=== PATIENT | female | born 1985 | race Caucasian/White ===

== ENCOUNTER → 2017-05-10 | Outpatient (CLI) | payer BC ==
--- NOTE | 2017-05-10 15:11 | Diagnostic Imaging Report ---
INDICATION: survey. TECHNIQUE: Multiple real-time grayscale images were obtained over the gravid uterus. COMPARISON: None. FINDINGS: heart rate is 130 beats per minute. The placenta is to the right with no placenta previa. The cervix appears to be closed and is 4.6 cm in length. The amniotic fluid appears to be normal. anatomy demonstrates normal appearance of the four-chamber view, stomach, kidneys, posterior fossa and no ventriculomegaly. The bladder is seen with two umbilical arteries. The cord insertion and spine are not well seen. The maternal adnexa are obscured by bowel gas. Biometrical measurements are as follows: Biparietal 4.41 cm, age 19 weeks 3 days. Head circumference 16.86 cm, age 19 weeks 4 days. Abdominal circumference 14.20 cm, age 19 weeks 4 days. Femur length 3.35 cm, age 20 weeks 4 days. Sonographic estimate age: 19 weeks 6 days. Sonographic estimated date of delivery: 09-28-17. Estimated Weight: 321 gm (+/- 47 gm). LMP percentile: 58%. heart rate: 130 beats per minute. number: 1 of 1. IMPRESSION: Followup study within 2 weeks is suggested to reevaluate the cord insertion and spine. Dictated by: Dictated on workstation # [id number]
== END ==
LOC: RAD 10:15
PROVIDERS: ATTEND Obstetrics & Gynecology
DX: Z34.82 Encounter for supervision of other normal pregnancy, second trimester (principal); Z3A.19 19 weeks gestation of pregnancy
CPT/HCPCS: 76805

== ENCOUNTER → 2017-09-14 | Outpatient (CLI) | payer BC ==
--- NOTE | 2017-09-14 16:23 | Diagnostic Imaging Report ---
INDICATION: Z33.1. FINDINGS: A biophysical profile was performed. The fetus is cephalic. The heart rate was recorded at 156 BPM. The amniotic fluid index is 8.7 cm. The placenta is to the right. The overall biophysical profile score is normal at 8 out of 8 points. IMPRESSION: The biophysical profile score is 8 out of 8 points. Dictated by: Dictated on workstation # [id number]
== END ==
LOC: RAD 12:13
PROVIDERS: ATTEND Obstetrics & Gynecology
DX: O24.419 Gestational diabetes mellitus in pregnancy, unspecified control (principal); Z3A.00 Weeks of gestation of pregnancy not specified
CPT/HCPCS: 76819

== ENCOUNTER 2017-09-23 06:00 | Inpatient (IN) | payer BC ==
[~2017-09-23] VITALS: Ht 167.6 cm; Wt 97.5 kg
[2017-09-23] VITALS (46 sets, daily range): BP systolic 112–166; BP diastolic 65–105
[2017-09-23] MEDS ORDERED: D5 LR IV SOLUTION 1,000 ML IV ONE (06:16)
[2017-09-23] MEDS ORDERED: D5 LR IV SOLUTION 1,000 ML IV SCH (06:22)
[2017-09-23] MEDS ORDERED: MINERAL OIL CONCENTRATE 99.9% 15 ML UDC TOP PRN (06:30)
[2017-09-23 06:31] LABS: BASOPHILS % (AUTO) 0 % (0-10); EOSINOPHILS # (AUTO) 0.2 10^3/uL (0.0-0.3); EOSINOPHILS % (AUTO) 2 % (0-10); HEMATOCRIT 34 % (35-52); HEMOGLOBIN 11.5 G/DL (11.5-16.0); LYMPHOCYTES # (AUTO) 1.4 X 10^3 (1.0-4.0); LYMPHOCYTES % (AUTO) 14 % (12-44); MEAN CORPUSCULAR HEMOGLOBIN 28 PG (25-34); MEAN CORPUSCULAR HGB CONC 34 G/DL (32-36); MEAN CORPUSCULAR VOLUME 83 FL (80-99); MEAN PLATELET VOLUME 10.8 FL (7.4-10.4); MONOCYTES # (AUTO) 0.6 X 10^3 (0.0-1.0); MONOCYTES % (AUTO) 5 % (0-12); NEUTROPHILS # (AUTO) 8.3 X 10^3 (1.8-7.8); NEUTROPHILS % (AUTO) 79 % (42-75); PLATELET COUNT 184 10^3/uL (130-400); RED BLOOD COUNT 4.11 10^6/uL (4.35-5.85); RED CELL DISTRIBUTION WIDTH 13.9 % (10.0-14.5); WHITE BLOOD COUNT 10.6 10^3/uL (4.3-11.0)
[2017-09-23 06:38] LABS: BILIRUBIN,URINE NEGATIVE (NEGATIVE); CLARITY,URINE CLEAR; COLOR,URINE YELLOW; GLUCOSE, URINE (UA) 3+ (NEGATIVE); KETONES,URINE NEGATIVE (NEGATIVE); LEUKOCYTE ESTERASE ,URINE NEGATIVE (NEGATIVE); NITRITE,URINE NEGATIVE (NEGATIVE); PH,URINE 7 (5-9); PROTEIN,URINE NEGATIVE (NEGATIVE); UROBILINOGEN,URINE NORMAL (NORMAL)
[2017-09-23 06:43] LABS: BACTERIA,URINE TRACE /HPF; SQUAMOUS EPITHELIAL CELL,UR 0-2 /HPF; WBC,URINE RARE /HPF
[2017-09-23] MEDS ORDERED: LACTATED RINGERS 1,000 ML IV ONE ×2 (07:21→18:51)
[2017-09-23] MEDS ORDERED: NS IV 1000 ML 1,000 ML IV SCH (07:24)
[2017-09-23] MEDS ORDERED: OXYTOCIN/NORMAL SALINE 500 ML IV SCH ×2 (07:27→19:00)
[2017-09-23] MEDS ORDERED: fentaNYL INJECTION 100 MCG/2 ML AMP ONE ×2 (07:59→18:48)
[2017-09-23] MEDS ORDERED: SUFENTA 0.6MCG/ML BUPIVA 0.125 100 ML ONE ×2 (08:00→14:41)
[2017-09-23] MEDS: CHLORASEPTIC LOZENGE MM PRN ×2 (08:05→17:35)
[2017-09-23] MEDS ORDERED: ONDANSETRON 4 MG/2 ML (SDV) Z0FRAN IVP PRN ×2 (10:15→19:00)
[2017-09-23] MEDS ORDERED: FAMOTIDINE 20MG/2ML IV (PEPCID) IVP ONE (10:15)
[2017-09-23] MEDS ORDERED: raNItidine 50 MG/NS 100 ML IVPB IV ONE ×2 (10:30)
[2017-09-23] MEDS ORDERED: CATHETER FLUSH 10 ML SYR IV SCH ×3 (14:00→22:00)
--- NOTE | 2017-09-23 18:03 | History & Physical-OB ---
OB - Chief Complaint & HPI Date/Time Date of Admission: Date of Admission: Sep 23, 2017 at 6:05 am Time Seen by Provider: 07:30 Chief Complaint/History OB-Reason for Admission/Chief: Induction of Labor Hx : 2 Hx Para: 2 Expected Date of Delivery: Sep 29, 2017 Gestational Age in Weeks: 39 Indication for induction: other Admission Nurse Assessment Rev: Yes History of Labs B pos Antibody neg RI RPR NR HBsAg NR HIV NR GC neg GBS neg Allergies and Home Medications Allergies Coded Allergies: No Known Drug Allergies (Unverified , 09/23/17) Patient Home Medication List Home Medication List Reviewed: Yes OB - History Hx of Present Care: Yes Ultrasounds: Normal mid trimester US Obstetrical Complications: Gestational Diabetes (GDMA2) Medical Complications: None Patient Past Medical History n/a Social History/Family History HIV/AIDS: No Recent Infectious Disease Expo: No Sexually Transmitted Disease: No Alcohol Use: Denies Use Recreational Drug Use: No OB - Admission Exam Physical Exam Vitals: Vital Signs 09/23/17 09/23/17 13:14 16:30 Temp 96.9 Pulse 78 Resp 18 B/P (MAP) 138/67 (90) Pulse Ox 100 O2 Delivery Room Air HEENT: NCAT Heart: Rhythm Normal Lungs: Clear Abdomen: Gravid Extremities: Normal Reflexes: Normal Cervical Dilatation: 1cm Effacement: 75% Station: -1 Membranes: Intact Heart Rate: 130's Accelerations: Accelerations Present Decelerations: No Decelerations Short Term Variability: Present Cardio Tech Variability: Average (6-25) Contractions on Admission: >10 Minutes Apart Intensity: Mild Osorio Scoring Tool (Modified) Dilation (cm): 1-2cm (1) Effacement (%): 51-79% (2) Descent/Station: -1,0 (2) Cervix Consistency: Soft (2) Cervix Position: Anterior (2) Osorio Score: 9 Labs Laboratory Tests Test 09/23/17 06:15 09/23/17 09:18 Range/Units White Blood Count 10.6 4.3-11.0 10^3/uL Red Blood Count 4.11 L 4.35-5.85 10^6/uL Hemoglobin 11.5 11.5-16.0 G/DL Hematocrit 34 L 35-52 % Mean Corpuscular Volume 83 80-99 FL Mean Corpuscular Hemoglobin 28 25-34 PG Mean Corpuscular Hemoglobin Concent 34 32-36 G/DL Red Cell Distribution Width 13.9 10.0-14.5 % Platelet Count 184 130-400 10^3/uL Mean Platelet Volume 10.8 H 7.4-10.4 FL Neutrophils (%) (Auto) 79 H 42-75 % Lymphocytes (%) (Auto) 14 12-44 % Monocytes (%) (Auto) 5 0-12 % Eosinophils (%) (Auto) 2 0-10 % Basophils (%) (Auto) 0 0-10 % Neutrophils # (Auto) 8.3 H 1.8-7.8 X 10^3 Lymphocytes # (Auto) 1.4 1.0-4.0 X 10^3 Monocytes # (Auto) 0.6 0.0-1.0 X 10^3 Eosinophils # (Auto) 0.2 0.0-0.3 10^3/uL Basophils # (Auto) 0.0 0.0-0.1 10^3/uL Urine Color YELLOW Urine Clarity CLEAR Urine pH 7 5-9 Urine Specific [place] 1.010 L 1.016-1.022 Urine Protein NEGATIVE NEGATIVE Urine Glucose (UA) 3+ H NEGATIVE Urine Ketones NEGATIVE NEGATIVE Urine Nitrite NEGATIVE NEGATIVE Urine Bilirubin NEGATIVE NEGATIVE Urine Urobilinogen NORMAL NORMAL MG/DL Urine Leukocyte Esterase NEGATIVE NEGATIVE Urine RBC (Auto) NEGATIVE NEGATIVE Urine RBC NONE /HPF Urine WBC RARE /HPF Urine Squamous Epithelial Cells 0-2 /HPF Urine Crystals NONE /LPF Urine Bacteria TRACE /HPF Urine Casts NONE /LPF Urine Mucus NEGATIVE /LPF Urine Culture Indicated NO Glucometer 123 H 70-110 MG/DL OB - Assessment/Plan/Diagnosis Assessment Assessment: induction of labor Admission Dx 31-year-old at 39 weeks and 1 day gestation Trial of labor after GDM A 2 on glyburide GBS negative Admission Status: Inpatient Order (span 2 midnights) Reason for Inpatient Admission: Labor and Delivery of -term Plan Plan: Induction Induction Method: IGOR HARRIS DO Sep 23, 2017 6:02 pm
[2017-09-23] MEDS ORDERED: LIDOCAINE PF 2% 5 ML (XYLOCAINE) VIAL ONE ×3 (18:47→20:10)
[2017-09-23] MEDS ORDERED: ceFAZolin 2 GM IV Premixed 50 ML ONE (18:51)
[2017-09-23] MEDS ORDERED: METOCLOPRAMIDE INJ 10 MG/2 ML (REGLAN) ONE (18:51)
[2017-09-23] MEDS ORDERED: BUPIVACAINE 0.25% 30 ML (SENSORCAINE) VIAL ONE (18:51)
[2017-09-23] MEDS ORDERED: CITRIC ACID/SOB CIT (BICITRA) 30 ML UDC ONE (18:51)
[2017-09-23] MEDS ORDERED: NS (IVPB) 100 ML ONE (18:51)
[2017-09-23] MEDS ORDERED: raNItidine 50 MG/2 ML INJ (ZANTAC) ONE (18:51)
[2017-09-23] MEDS ORDERED: OXYTOCIN/NORMAL SALINE 1,000 ML IV ONE (18:52)
[2017-09-23] MEDS ORDERED: HYDROmorphone (DILAUDID) 2 MG/ML VIAL IVP PRN (19:00)
[2017-09-23] MEDS ORDERED: ceFAZolin 2 GM IV Premixed 50 ML IV ONE (19:00)
[2017-09-23] MEDS ORDERED: TETANUS,DIPTH,PERTUSS P/F (BOOSTRIX) 0.5 ML VIAL IM SCH (19:00)
[2017-09-23] MEDS ORDERED: MEASLES,MUMPS,RUBELLA 1 EA INJ SC SCH (19:00)
[2017-09-23] MEDS ORDERED: KETOROLAC 30 MG/ML VIAL IVP SCH (19:00)
[2017-09-23] MEDS: LACTATED RINGERS 1,000 ML IV SCH ×2 (19:02→19:57)
[2017-09-23] MEDS ORDERED: DEXAMETHASONE 10 MG/ML (DECADRON) 1 ML VIAL ONE (19:02)
[2017-09-23] MEDS ORDERED: ONDANSETRON 4 MG/2 ML (SDV) Z0FRAN ONE (19:02)
[2017-09-23] MEDS ORDERED: LACTATED RINGERS 1,000 ML IV SCH (19:05)
--- NOTE | 2017-09-23 19:08 | Progress Note-Standard ---
Standard Progress Note Progress Notes/Assess & Plan Date Seen by Provider: Sep 23, 2017 Time Seen by Provider: 19:03 Progress/Assessment & Plan This 31-year-old with history of previous section for twin delivery with her first was brought in this morning for elective induction of labor, and trial of labor after . The patient had been extensively counseled in the office about the risk involved TOLAC. Upon admission IV was placed and epidural was placed according to protocol established. Artificial rupture membranes was performed at approximately 730 this morning with clear fluid noted and Pitocin augmentation was initiated throughout the day to maximum dose of 16 mU/m. She progressed to 3 cm dilatation however at approximately 1 o'clock this afternoon we recognized that there was a hand presentation several different maneuvers were performed to try to reduce the hand including manual reduction, and repositioning the patient in hands and knees left side and right side all without any reduction or movement of the hand and its position. Due to malpresentation and no progression in cervical dilatation in greater than 4 hours despite adequate augmentation discussion was made with the patient to proceed with . Risk of the procedure is briefly reviewed with the patient, the patient is familiar with the risk from previous . Consent was obtained and we will proceed once our staff is available. IGOR DEAN DO Sep 23, 2017 19:08
[2017-09-23] MEDS ORDERED: FAMOTIDINE 20MG/2ML IV (PEPCID) IV ONE (19:15)
[2017-09-23] MEDS ORDERED: CITRIC ACID/SOB CIT (BICITRA) 30 ML UDC PO ONE (19:15)
[2017-09-23] MEDS ORDERED: raNItidine 50 MG/2 ML INJ (ZANTAC) IV ONE (19:15)
[2017-09-23] MEDS ORDERED: METOCLOPRAMIDE INJ 10 MG/2 ML (REGLAN) IV ONE (19:15)
--- NOTE | 2017-09-23 19:36 | Discharge Inst-Women's Service ---
Discharge Inst-Women's Serv Depart Medication/Instructions New, Converted or Re-Newed RX: RX on Chart Consults/Follow Up Additional Follow Up: Yes Orders/Referrals Dr. Rico in 7-10 days and in 6 weeks Activity Activity: Activity as Tolerated Driving Instructions: No Driving for 1 Week NO SMOKING: NO SMOKING Nothing Inside Vagina: No Douching, No Terramuggus, No Tampons Diet Discharge Diet: No Restrictions Symptoms to Report to : Bleeding Excessive, Pain Increased, Fever Over 101 Degrees F, Vaginal Bleeding Increase, Questions/Concerns For Any Problems or Questions: Contact Your Physician Skin/Wound Care Infection Signs and Symptoms: Increased Redness, Foul Odor of Wound, Increased Drainage, Skin Itchy or Has a Rash, Increased Swelling, Temperature Above 101 F Operative Area Clean and Dry: Keep Incision Clean/Dry Stitches/Juan Manuel/Dermabond: Dermabond, Care of Stitches Bathing Instructions: IGOR Mccain DO Sep 23, 2017 19:36
[2017-09-23] MEDS ORDERED: ACHD5005 PO (19:38)
[2017-09-23] MEDS ORDERED: IBUP-1773 PO (19:38)
[2017-09-23] MEDS ORDERED: DOCU100C37 PO (19:38)
[2017-09-23] MEDS: DOCUSATE SODIUM 100 MG (COLACE) CAP PO SCH (21:00)
[2017-09-24 01:00] VITALS: BP 114/78
--- NOTE | 2017-09-24 02:40 | OPERATIVE REPORT ---
DATE OF SERVICE: PREOPERATIVE DIAGNOSES: 1. A 31-year-old G2, P2 at 39 weeks and 1 day gestation. 2. Hand/ malpresentation. 3. Failure to progress. POSTOPERATIVE DIAGNOSES: 1. A 31-year-old G2, P2 at 39 weeks and 1 day gestation. 2. Hand/ malpresentation. 3. Failure to progress. PROCEDURE: Repeat low transverse section. SURGEON: Dr. Handy Rico. ANESTHESIA: Epidural, which was bolused. ESTIMATED BLOOD LOSS: 300 mL. URINE OUTPUT: 1200 mL clear at the end of procedure. FLUIDS: 1300 mL lactated Ringer solution. FINDINGS: A live male infant weighing 7 pounds 8 ounces, Apgars 9 and 9. Grossly normal appearing uterus, bilateral fallopian tubes and ovaries. INDICATIONS FOR PROCEDURE: This patient was admitted as an elective induction for trial of labor after . Please see my preoperative note for complete details pertaining to the patient's preoperative course and indication. DESCRIPTION OF PROCEDURE IN DETAIL: Once in the operating room, spinal epidural analgesia was found to be adequate. She was placed in the supine position with a leftward tilt, prepped and draped in normal sterile fashion where time out was performed. Anesthesia was tested. Once anesthesia was found to be adequate, a Pfannenstiel skin incision was made through the previous existing scar using knife and carried down to underlying fascia using Bovie cautery. Fascial incision was extended laterally using Bovie cautery. Superior aspect of fascial incision was then grasped with Clifton clamps, tented up and dissected off the underlying rectus muscles. The inferior aspect of the fascial incision was then grasped with Clifton clamps, tented up and dissected off the underlying rectus muscles. The rectus muscles were then dissected down the midline using blunt traction and Dover scissors, which exposed the peritoneum which entered bluntly and extended with blunt traction. Lavell ring retractor was placed within the peritoneal incision, which offers excellent lateral sidewall retraction. I then identified the lower uterine segment, which was found to be thinned out. I make a low transverse incision through the vesicouterine peritoneum and bluntly dissect the bladder off of the lower uterine segment. I proceeded with my myotomy until membranes were visualized, at which point I extended the uterine incision laterally and superiorly using bandage scissors. Amniotomy was performed with blunt dissection. The was found in vertex presentation with the hand presentation, persistent. I am able to elevate the 's head up to the incision without bringing the hand with it after which with the gentle fundal pressure, the 's head was delivered through the incision. The nares and oropharynx were bulb suctioned. Anterior and posterior shoulders delivered. Infant was then brought to the operative field where the cord was doubly clamped and cut. was handed off to the waiting nurses in attendance. Cord blood was collected. Three-vessel cord was intact. Placenta delivered spontaneously thereafter. IV Pitocin was initiated to facilitate uterine contraction. Uterine fundus became firmer with bimanual massage. Uterus was then exteriorized and cleared off all endometrial clots and debris. I then proceeded with closing the uterine incision using 0 Vicryl suture in running locked fashion. Second layer of imbricating 0 Monocryl was placed. Excellent hemostasis was noted after doing this. I then placed the uterus back within the pelvis, copiously irrigated the pelvis using normal saline. There was no active bleeding noted once again from any of my dissection planes. I then placed Interceed antiadhesive over my low transverse incision and proceeded with closing the peritoneum using 3-0 Vicryl suture in running fashion. The rectus muscle was reapproximated using 3-0 Vicryl suture in an interrupted fashion. The fascia was reapproximated using 0 Vicryl suture in running fashion. Subcutaneous tissue was reapproximated using 3-0 plain in interrupted subcutaneous stitch and skin reapproximated using 4-0 Monocryl running subcuticular. Dermabond was applied to the incision and sterile dressing with adhesive white tape. The patient tolerated the procedure well and sent to recovery area in stable condition. Lap and sponge counts were correct at the end of the procedure. Instrument counts correct as well. Two grams of Ancef were given preoperatively for infection prophylaxis. Job ID: [id number] DocumentID: [id number] Dictated Date: 09/23/2017 20:15:31 Packing House Supervisor Date: 09/24/2017 02:39:56 Dictated By: DO JUAN LUIS ROLLINS
[2017-09-24 04:30] VITALS: BP 110/71
[2017-09-24] MEDS: HYDROcodone/APAP 5 MG/325 MG (LORTAB) TAB PO PRN ×2 (05:16→14:16)
[2017-09-24 06:32] LABS: BASOPHILS % (AUTO) 0 % (0-10); EOSINOPHILS % (AUTO) 0 % (0-10); HEMATOCRIT 30 % (35-52); LYMPHOCYTES % (AUTO) 6 % (12-44); MEAN CORPUSCULAR HEMOGLOBIN 28 PG (25-34); MEAN CORPUSCULAR HGB CONC 33 G/DL (32-36); MEAN CORPUSCULAR VOLUME 84 FL (80-99); MEAN PLATELET VOLUME 10.8 FL (7.4-10.4); MONOCYTES # (AUTO) 0.6 X 10^3 (0.0-1.0); MONOCYTES % (AUTO) 4 % (0-12); NEUTROPHILS # (AUTO) 14.5 X 10^3 (1.8-7.8); NEUTROPHILS % (AUTO) 90 % (42-75); PLATELET COUNT 187 10^3/uL (130-400); RED BLOOD COUNT 3.59 10^6/uL (4.35-5.85); RED CELL DISTRIBUTION WIDTH 14.1 % (10.0-14.5); WHITE BLOOD COUNT 16.1 10^3/uL (4.3-11.0)
[2017-09-24 07:36] VITALS: BP 113/70
--- NOTE | 2017-09-24 08:28 | Postpartum Progress Note ---
Note Note Day # 1 Subjective: Patient is without complaints. Ambulating, voiding. Tolerating a regular diet without nausea or vomiting. Normal lochia. Pain is well controlled with oral pain medications. Attempting to breastfeed, but meeting with LC later today. Objective: Vital Sign - Last 24 Hours 09/23/17 09/23/17 09/23/17 09/23/17 08:35 08:40 08:45 09:00 Pulse 100 96 100 98 Resp 18 18 18 18 B/P (MAP) 135/91 (106) 139/94 (109) 138/76 (96) 141/89 (106) Pulse Ox 100 100 100 100 O2 Delivery Room Air Room Air Room Air Room Air 09/23/17 09/23/17 09/23/17 09/23/17 09:15 09:30 09:45 10:00 Temp 97.0 Pulse 102 89 89 83 Resp 18 18 18 18 B/P (MAP) 130/91 (104) 132/75 (94) 132/75 (94) 126/79 (95) Pulse Ox 100 100 100 100 O2 Delivery Room Air Room Air Room Air Room Air 09/23/17 09/23/17 09/23/17 09/23/17 10:15 10:30 10:45 11:00 Pulse 72 72 77 89 Resp 18 18 18 18 B/P (MAP) 130/81 (97) 130/81 (97) 128/79 (95) 138/86 (103) Pulse Ox 100 100 99 100 O2 Delivery Room Air Room Air Room Air Room Air 09/23/17 09/23/17 09/23/17 09/23/17 11:15 11:30 11:45 12:00 Pulse 82 77 86 71 Resp 18 18 18 18 B/P (MAP) 140/82 (101) 131/75 (93) 122/68 (86) Pulse Ox 99 100 99 99 O2 Delivery Room Air Room Air Room Air Room Air 09/23/17 09/23/17 09/23/17 09/23/17 12:15 12:30 12:45 13:00 Pulse 81 77 77 93 Resp 18 18 18 18 B/P (MAP) 113/65 (81) 119/67 (84) 153/93 (113) 135/99 (111) Pulse Ox 99 99 100 100 O2 Delivery Room Air Room Air Room Air Room Air 09/23/17 09/23/17 09/23/17 09/23/17 13:14 13:15 13:30 13:45 Temp 96.9 Pulse 86 72 68 Resp 18 18 18 B/P (MAP) 129/84 (99) 122/72 (89) 117/71 (86) Pulse Ox 93 98 99 O2 Delivery Room Air Room Air Room Air 09/23/17 09/23/17 09/23/17 09/23/17 14:00 14:15 14:30 14:45 Pulse 68 65 72 90 Resp 18 18 18 18 B/P (MAP) 117/71 (86) 117/73 (88) 116/74 (88) 134/98 (110) Pulse Ox 99 100 100 100 O2 Delivery Room Air Room Air Room Air Room Air 09/23/17 09/23/17 09/23/17 09/23/17 15:00 15:15 15:30 15:45 Pulse 95 95 89 92 Resp 18 18 18 18 B/P (MAP) 135/79 (97) 135/79 (97) 140/72 (94) 144/92 (109) Pulse Ox 100 100 100 97 O2 Delivery Room Air Room Air Room Air Room Air 09/23/17 09/23/17 09/23/17 09/23/17 16:00 16:15 16:30 16:45 Pulse 81 78 78 97 Resp 18 18 18 18 B/P (MAP) 144/92 (109) 141/81 (101) 138/67 (90) 146/91 (109) Pulse Ox 99 99 100 100 O2 Delivery Room Air Room Air Room Air Room Air 09/23/17 09/23/17 09/23/17 09/23/17 17:00 17:06 17:15 17:30 Temp 99.1 98.4 Pulse 88 85 107 Resp 18 18 18 B/P (MAP) 146/91 (109) 148/78 (101) Pulse Ox 98 100 97 O2 Delivery Room Air Room Air Room Air 09/23/17 09/23/17 09/23/17 09/23/17 17:45 18:00 18:15 18:30 Pulse 85 85 Resp 18 18 18 18 B/P (MAP) 148/78 (101) 148/78 (101) Pulse Ox 100 100 O2 Delivery Room Air Room Air Room Air Room Air 409/23/17 09/23/17 09/24/17 18:45 19:00 21:45 00:22 Temp 99.2 Pulse 101 Resp 18 B/P (MAP) 112/72 (85) Pulse Ox 98 O2 Delivery Room Air Room Air Room Air Room Air 09/24/17 09/24/17 09/24/17 01:00 04:30 07:36 Temp 97.4 97.6 97.5 Pulse 87 91 78 Resp 18 18 18 B/P (MAP) 114/78 (90) 110/71 (84) 113/70 (84) Pulse Ox 97 98 97 O2 Delivery Room Air Room Air Room Air Intake and Output 09/23/17 09/23/17 09/24/17 15:00 23:00 07:00 Intake Total 1980 ml 1090 ml 4300 ml Output Total 1200 ml 2750 ml Balance 1980 ml -110 ml 1550 ml Physical Exam: General - Alert and oriented, no apparent distress Abdomen - Soft, appropriately tender to palpation, non-distended, fundus firm at umbilicus Extremities - no edema, negative Landon's bilaterally Incision: c/d/i Assessment: POD 1 RLTCS Malpresentation Plan: Routine care. Encourage breast feeding. Encourage ambulation. Ferrous sulfate supplementation. Plan for discharge tomorrow Vitals - Labs Vital Signs - I&O Vital Signs Date Time Temp Pulse Resp B/P (MAP) Pulse Ox O2 Delivery O2 Flow Rate FiO2 09/24/17 07:36 97.5 78 18 113/70 (84) 97 Room Air 09/24/17 04:30 97.6 91 18 110/71 (84) 98 Room Air 09/24/17 01:00 97.4 87 18 114/78 (90) 97 Room Air 09/24/17 00:22 Room Air 09/23/17 21:45 99.2 101 18 112/72 (85) 98 Room Air 09/23/17 19:00 Room Air 09/23/17 18:45 Room Air 09/23/17 18:30 18 Room Air 09/23/17 18:15 18 Room Air 09/23/17 18:00 85 18 148/78 (101) 100 Room Air 09/23/17 17:45 85 18 148/78 (101) 100 Room Air 09/23/17 17:30 98.4 107 18 97 Room Air 09/23/17 17:15 85 18 148/78 (101) 100 Room Air 09/23/17 17:06 99.1 09/23/17 17:00 88 18 146/91 (109) 98 Room Air 09/23/17 16:45 97 18 146/91 (109) 100 Room Air 09/23/17 16:30 78 18 138/67 (90) 100 Room Air 09/23/17 16:15 78 18 141/81 (101) 99 Room Air 09/23/17 16:00 81 18 144/92 (109) 99 Room Air 09/23/17 15:45 92 18 144/92 (109) 97 Room Air 09/23/17 15:30 89 18 140/72 (94) 100 Room Air 09/23/17 15:15 95 18 135/79 (97) 100 Room Air 09/23/17 15:00 95 18 135/79 (97) 100 Room Air 09/23/17 14:45 90 18 134/98 (110) 100 Room Air 09/23/17 14:30 72 18 116/74 (88) 100 Room Air 09/23/17 14:15 65 18 117/73 (88) 100 Room Air 09/23/17 14:00 68 18 117/71 (86) 99 Room Air 09/23/17 13:45 68 18 117/71 (86) 99 Room Air 09/23/17 13:30 72 18 122/72 (89) 98 Room Air 09/23/17 13:15 86 18 129/84 (99) 93 Room Air 09/23/17 13:14 96.9 09/23/17 13:00 93 18 135/99 (111) 100 Room Air 09/23/17 12:45 77 18 153/93 (113) 100 Room Air 09/23/17 12:30 77 18 119/67 (84) 99 Room Air 09/23/17 12:15 81 18 113/65 (81) 99 Room Air 09/23/17 12:00 71 18 122/68 (86) 99 Room Air 09/23/17 11:45 86 18 99 Room Air 09/23/17 11:30 77 18 131/75 (93) 100 Room Air 09/23/17 11:15 82 18 140/82 (101) 99 Room Air 09/23/17 11:00 89 18 138/86 (103) 100 Room Air 09/23/17 10:45 77 18 128/79 (95) 99 Room Air 09/23/17 10:30 72 18 130/81 (97) 100 Room Air 09/23/17 10:15 72 18 130/81 (97) 100 Room Air 09/23/17 10:00 83 18 126/79 (95) 100 Room Air 09/23/17 09:45 89 18 132/75 (94) 100 Room Air 09/23/17 09:30 89 18 132/75 (94) 100 Room Air 09/23/17 09:15 97.0 102 18 130/91 (104) 100 Room Air 09/23/17 09:00 98 18 141/89 (106) 100 Room Air 09/23/17 08:45 100 18 138/76 (96) 100 Room Air 09/23/17 08:40 96 18 139/94 (109) 100 Room Air 09/23/17 08:35 100 18 135/91 (106) 100 Room Air 09/23/17 08:28 104 18 145/83 (103) 100 Room Air I & O 09/24/17 07:00 Intake Total 7370 ml Output Total 3950 ml Balance 3420 ml Labs Laboratory Tests 09/23/17 09:18: Glucometer 123H 09/24/17 06:01: White Blood Count 16.1H, Red Blood Count 3.59L, Hemoglobin 10.0L, Hematocrit 30L , Mean Corpuscular Volume 84, Mean Corpuscular Hemoglobin 28, Mean Corpuscular Hemoglobin Concent 33, Red Cell Distribution Width 14.1, Platelet Count 187, Mean Platelet Volume 10.8H, Neutrophils (%) (Auto) 90H, Lymphocytes (%) (Auto) 6L, Monocytes (%) (Auto) 4, Eosinophils (%) (Auto) 0, Basophils (%) (Auto) 0, Neutrophils # (Auto) 14.5H, Lymphocytes # (Auto) 1.0, Monocytes # (Auto) 0.6, Eosinophils # (Auto) 0.0, Basophils # (Auto) 0.0 IGOR DEAN DO Sep 24, 2017 08:28
[2017-09-24] MEDS ORDERED: IBUPROFEN 600 MG (MOTRIN) TAB PO ONE (10:37)
[2017-09-24] MEDS: DOCUSATE SODIUM 100 MG (COLACE) CAP PO SCH ×2 (10:42→22:05)
[2017-09-24] MEDS: IBUPROFEN 600 MG (MOTRIN) TAB PO SCH ×2 (10:42→17:55)
[2017-09-24 14:10] VITALS: BP 136/85
--- NOTE | 2017-09-24 14:48 | Anesthesia-Regional Post-Op ---
Regional Significant Intra-Op Events Notes Pt voiced no side effects when interviewed. Sitting up in bed Patient Condition Mental Status: Alert, Oriented x3 Circulation: Same as Pre-Op Headache: Absent Sensation: Full Recovery Motor Block: Absent Post Op Complications Complications None Follow Up Care/Instructions Patient Instructions None needed. Anesthesia/Patient Condition Patient is doing well, no complaints, stable vital signs, no apparent adverse anesthesia problems. No complications reported per nursing. D/C home per [facility] Criteria: Yes DIPTI CORONA CRNA Sep 24, 2017 14:48
[2017-09-24 17:53] VITALS: BP 108/72
[2017-09-24 22:00] VITALS: BP 113/72
[2017-09-25 02:40] VITALS: BP 121/78
[2017-09-25] MEDS: IBUPROFEN 600 MG (MOTRIN) TAB PO SCH ×4 (02:42→17:27)
[2017-09-25 09:00] VITALS: BP 122/78
[2017-09-25] MEDS: DOCUSATE SODIUM 100 MG (COLACE) CAP PO SCH (09:07)
[2017-09-25] MEDS: HYDROcodone/APAP 5 MG/325 MG (LORTAB) TAB PO PRN ×2 (09:09→12:57)
[2017-09-25] MEDS: CHLORASEPTIC LOZENGE MM PRN ×2 (09:18→12:57)
--- NOTE | 2017-09-25 10:43 | Postpartum Progress Note ---
Note Note Day # 2 Subjective: Patient is without complaints. Ambulating, voiding. Tolerating a regular diet without nausea or vomiting. Normal lochia. Pain is well controlled with oral pain medications. Objective: Vital Sign - Last 24 Hours 09/24/17 09/24/17 09/24/17 09/25/17 14:10 17:53 22:00 02:40 Temp 97.9 96.6 98.4 99.0 Pulse 86 86 96 102 Resp 18 18 18 18 B/P (MAP) 136/85 (102) 108/72 (84) 113/72 (86) 121/78 (92) Pulse Ox 99 99 96 97 O2 Delivery Room Air Room Air Room Air Room Air 09/25/17 09/25/17 09:00 09:00 Temp 98.5 Pulse 103 Resp 18 B/P (MAP) 122/78 (93) Pulse Ox 98 98 O2 Delivery Room Air Room Air Intake and Output 09/24/17 09/24/17 09/25/17 15:00 23:00 07:00 Intake Total 1780 ml 1700 ml Output Total 2200 ml 2000 ml Balance -420 ml -300 ml Physical Exam: General - Alert and oriented, no apparent distress Abdomen - Soft, appropriately tender to palpation, non-distended, fundus firm at umbilicus Extremities - no edema, negative Landon's bilaterally Incision: c/d/i Assessment: POD 2 RLTCS Malpresentation Plan: Routine care. Encourage breast feeding. Encourage ambulation. Ferrous sulfate supplementation. Plan for discharge today Vitals - Labs Vital Signs - I&O Vital Signs Date Time Temp Pulse Resp B/P (MAP) Pulse Ox O2 Delivery O2 Flow Rate FiO2 09/25/17 09:00 98.5 103 18 122/78 (93) 98 Room Air 09/25/17 09:00 98 Room Air 09/25/17 02:40 99.0 102 18 121/78 (92) 97 Room Air 09/24/17 22:00 98.4 96 18 113/72 (86) 96 Room Air 09/24/17 17:53 96.6 86 18 108/72 (84) 99 Room Air 09/24/17 14:10 97.9 86 18 136/85 (102) 99 Room Air I & O 09/25/17 07:00 Intake Total 3480 ml Output Total 4200 ml Balance -720 ml IGOR DEAN DO Sep 25, 2017 10:43 am
[2017-09-25] MEDS: guaiFENesin/DM (ROBITUSSIN DM) 10 ML UDC PO PRN ×2 (11:31→17:25)
[2017-09-25 12:30] VITALS: BP 124/82
[2017-09-25 12:45] VITALS: BP 122/82
[2017-09-25 17:50] VITALS: BP 122/82
== END 2017-09-25 17:50 | disposition home or self-care (01) | DRG 766 ==
LOC: LDRP 06:05
PROVIDERS: ADMIT Obstetrics & Gynecology; ATTEND Obstetrics & Gynecology
PROC: 10907ZC Drainage of Amniotic Fluid, Therapeutic from Products of Conception, Via Natural or Artificial Opening (ICD-10-PCS; 2017-09-23)
PROC: 10D00Z1 Extraction of Products of Conception, Low, Open Approach (ICD-10-PCS; principal; 2017-09-23 19:29)
DX: O24.425 Gestational diabetes mellitus in childbirth, controlled by oral hypoglycemic drugs (principal); O32.8XX0 Maternal care for other malpresentation of fetus, not applicable or unspecified; O62.0 Primary inadequate contractions; O66.41 Failed attempted vaginal birth after previous cesarean delivery; Z3A.39 39 weeks gestation of pregnancy; Z37.0 Single live birth
CPT/HCPCS: 36415; 81000; 82962; 85025; 86850; 86900; 86901; 94664

== ENCOUNTER → 2022-08-24 | Outpatient (CLI) | payer BC ==
[~2022-08-24] MED LIST: ACHD5005 PO; DOCU100C37 PO; IBUP-1773 PO
--- NOTE | 2022-08-24 11:17 | Diagnostic Imaging Report ---
PROCEDURE: MRI lumbar spine. TECHNIQUE: Multiplanar, multisequence MRI of the lumbar spine was performed without contrast. INDICATION: Left sciatica COMPARISON: None FINDINGS: Alignment of the lumbar spine appears normal with no spondylolisthesis. Vertebral body heights are preserved. There is mild disc height loss at L5-S1 with decreased T2 signal, otherwise the discs appear normal. The conus terminates in appropriate position. Soft tissues about the lumbar spine demonstrate no acute abnormality. T12-L1: No disc bulge. No spinal canal or foraminal stenosis. L1-L2: No significant disc bulge. No spinal canal or foraminal stenosis. L2-L3: No significant disc bulge. No spinal canal or foraminal stenosis. L3-L4: No significant disc bulge. Mild facet arthropathy. No spinal canal or foraminal stenosis. L4-L5: Mild disc bulge with facet arthropathy and ligamentous infolding. Minimal spinal canal narrowing. Mild bilateral foraminal narrowing. L5-S1: Mild disc bulge with left paracentral disc extrusion extending inferiorly about 1.1 cm. This does appear to contact the left S1 nerve root. There is mild spinal canal narrowing. There is moderate right and mild left foraminal stenosis. IMPRESSION: 1. Mild degenerative disc disease in the lower lumbar spine with left paracentral disc extrusion at L5-S1. This contacts the left S1 nerve root. Dictated by: Dictated on workstation # [id number]
== END ==
LOC: RAD 09:07
PROVIDERS: ATTEND Family Medicine
DX: M51.17 Intervertebral disc disorders with radiculopathy, lumbosacral region (principal)
CPT/HCPCS: 72148